=== PATIENT | female | born 1980 | race Caucasian/White ===

== ENCOUNTER → 2023-12-23 07:34 | Outpatient (REF) | payer OTHER, SELFPAY | LOC: EMG 07:34 | PROVIDERS: ATTENDING PHYSICIAN Family Medicine | DX: M54.16 Radiculopathy, lumbar region (principal); I10 Essential (primary) hypertension; R20.0 Anesthesia of skin; M79.641 Pain in right hand; M79.642 Pain in left hand; Z12.31 Encounter for screening mammogram for malignant neoplasm of breast | CPT/HCPCS: 72110; 73120; 77063; 77067; 95886; 95912 ==

== ENCOUNTER → 2025-03-02 09:06 | Outpatient (REF) | payer OTHER, SELFPAY | LOC: RCS 09:06 | PROVIDERS: ATTENDING PHYSICIAN Internal Medicine Cardiovascular Disease; FAMILY PHYSICIAN Family Medicine | DX: R06.02 Shortness of breath (principal) | CPT/HCPCS: 93306 ==

== ENCOUNTER → 2025-07-04 17:08 | Outpatient (REF) | payer OTHER, SELFPAY | LOC: WDC 17:08 | PROVIDERS: ATTENDING PHYSICIAN Family Medicine | DX: Z12.31 Encounter for screening mammogram for malignant neoplasm of breast (principal) | CPT/HCPCS: 77063; 77067 ==